=== PATIENT | male | born 2000 | race Caucasian/White ===

== ENCOUNTER 2022-05-08 07:52 | Outpatient (CLI) | payer OTHER, SELFPAY | END 2022-05-08 07:53 | disposition home or self-care (01) | LOC: NFLDREF 07:59 | PROVIDERS: PCP Family Medicine; Visit Provider Family Medicine | DX: Z00.00 Encounter for general adult medical examination without abnormal findings (principal); F32.A Depression, unspecified | CPT/HCPCS: 84443 ==

== ENCOUNTER 2024-01-19 18:41 | Emergency (ER) | payer OTHER, SELFPAY ==
[2024-01-19 19:23] VITALS: BP 112/65; PULSE 85; RESP 14; TEMP 37.2; O2SAT 97; BMI 18.7
--- NOTE | 2024-01-19 19:27 | XR_ITS ---
Patient: JAKE PETTY Facility:?[facility] Patient ID:?[id number] Site Patient ID:?[id number] Site :?2002 Study:?XRay-Extremity Right hand 3v-01/19/2024 7:39:30 PM Ordering Physician:?Peri Arias Final Report: Indication: Crush injury Technique: Three views Comparison: None Findings/Impression: There is an oblique fracture of the distal 5th metacarpal with 1 millimeter of volar displacement of the distal fracture fragment. No intra-articular involvement. Associated mild soft tissue swelling. Dictated by Filemon Perla MD @ 01/19/2024 8:26:43 PM Signed by:?Filemon Perla MD @01/19/2024 8:26:43 PM (Electronic Signature)
--- NOTE | 2024-01-19 21:42 | ED_ITS ---
HPI - Extremity Injury (Upper) General Time Seen by Provider: 21:42 Date Seen: 01/19/24 Chief Complaint: Extremity Pain/Injury, Upper Stated Complaint: R hand injury Time Seen by Provider: 01/19/24 21:40 Source: patient Mode of arrival: ambulatory Limitations: no limitations Related Data Home Medications Medication Instructions Recorded Confirmed cetirizine 10 mg capsule (Zyrtec) 10 mg PO QDAY PRN 12/17/22 01/19/24 Previous Rx's Medication Instructions Recorded dextroamphetamine-amphetamine 10 10 mg PO BID PRN concentration #60 05/18/23 mg tablet tabs Allergies Allergy/AdvReac Type Severity Reaction Status Date / Time tide detergent Allergy Mild Rash Uncoded 07/15/23 09:55 PFSH PFS Medical History Seasonal allergies ?J30.2 - Other seasonal allergic rhinitis (ICD-10) Surgical History History of tympanostomy ?Z98.890 - Other specified postprocedural states (ICD-10) H/O myringotomy ?Z98.890 - Other specified postprocedural states (ICD-10) Family History Father Asthma Social History (Updated 04/01/23 @ 14:25 by Radha Garcia ~ [facility], [facility]) Narrative: Medical Problems: ADHD Acne Concussion Surgical Problems: Hx of tympanostomy tubes Family History Problems: Family history of asthma in father Smoking Status: Never smoker Do you use any of these nicotine containing products: E-Cigarettes Second hand tobacco smoke exposure: No Little interest or pleasure in doing things: not at all Feeling down, depressed, or hopeless: not at all Exam Const: Vital Signs, click to edit/add: Vital Signs - 24 hr 01/19/24 19:23 Temperature 99 F Pulse Rate [Pulse Oximeter] 85 Respiratory Rate 14 Blood Pressure [Ri ght Upper Arm] 112/65 Pulse Oximetry 97 Oxygen Delivery Me thod Room Air Course Vital Signs Vital signs: Initial Vital Signs Temperature 99 F 01/19/24 19:23 Temperature Source Oral 01/19/24 19:23 Pulse Rate 85 01/19/24 19:23 Pulse Rhythm Regular 01/19/24 19:23 Pulse Strength 3+ Normal 01/19/24 19:23 Respiratory Rate 14 01/19/24 19:23 Blood Pressure 112/65 01/19/24 19:23 Blood Pressure Mean 80 01/19/24 19:23 Blood Pressure Position Sitting 01/19/24 19:23 Pulse Oximetry 97 01/19/24 19:23 Oxygen Delivery Method Room Air 01/19/24 19:23 Vital Signs Temperature 99 F 01/19/24 19:23 Pulse Rate 85 01/19/24 19:23 Respiratory Rate 14 01/19/24 19:23 Blood Pressure 112/65 01/19/24 19:23 Pulse Oximetry 97 01/19/24 19:23 Oxygen Delivery Method Room Air 01/19/24 19:23 Temperature 99 F 01/19/24 19:23 Pulse Rate 85 01/19/24 19:23 Respiratory Rate 14 01/19/24 19:23 Blood Pressure 112/65 01/19/24 19:23 Pulse Oximetry 97 01/19/24 19:23 Oxygen Delivery Method Room Air 01/19/24 19:23 Discharge Plan Discharge Prescriptions: No Action Zyrtec 10 mg capsule 10 mg PO QDAY PRN dextroamphetamine-amphetamine 10 mg tablet 10 mg PO BID PRN (Reason: concentration) Qty: 60 0RF Rx Instructions: administer doses at least 4-6 hours apart Follow Up/Referrals: Manjinder Alexander MD [Primary Care Provider] -
--- NOTE | 2024-01-19 21:44 | ED_ITS ---
HPI - General Adult General Chief complaint: Extremity Pain/Injury, Upper Stated complaint: R hand injury Time Seen by Provider: 01/19/24 21:40 History of Present Illness HPI narrative: This is a 23-year-old man who has a history of tendinitis affecting his right hand (last about 6 months last year), also with a history of ADHD, who presents to the ER today with a work-related injury to his right hand. He was using a [employer] to lift some heavy pallets at work [facility] [employer] this afternoon when he accidentally got his right hand caught between the handle of the [employer] and another forklift. He suffered some abrasions to the dorsum of the 5th metacarpal in and a superficial abrasion in the the webspace between his 4th and 5th digits on his right hand. He has had pain affecting the 5th metacarpal of his right hand. Otherwise no pain in the index, middle finger, ring fingers. Thumb uninjured. Related Data Home Medications Medication Instructions Recorded Confirmed cetirizine 10 mg capsule (Zyrtec) 10 mg PO QDAY PRN 12/17/22 01/19/24 Previous Rx's Medication Instructions Recorded dextroamphetamine-amphetamine 10 10 mg PO BID PRN concentration #60 05/18/23 mg tablet tabs Allergies Allergy/AdvReac Type Severity Reaction Status Date / Time tide detergent Allergy Mild Rash Uncoded 07/15/23 09:55 [facility] Medical History Seasonal allergies ?J30.2 - Other seasonal allergic rhinitis (ICD-10) Surgical History History of tympanostomy ?Z98.890 - Other specified postprocedural states (ICD-10) H/O myringotomy ?Z98.890 - Other specified postprocedural states (ICD-10) Family History Father Asthma Social History (Updated 04/01/23 @ 14:25 by Radha Garcia ~ [facility], [facility]) Narrative: Medical Problems: ADHD Acne Concussion Surgical Problems: Hx of tympanostomy tubes Family History Problems: Family history of asthma in father Smoking Status: Never smoker Do you use any of these nicotine containing products: E-Cigarettes Second hand tobacco smoke exposure: No Non-prescribed substance use: denies use Little interest or pleasure in doing things: not at all Feeling down, depressed, or hopeless: not at all service: No Exam Const: Vital Signs, click to edit/add: Vital Signs - 24 hr 01/19/24 19:23 Temperature 99 F Pulse Rate [Pulse Oximeter] 85 Respiratory Rate 14 Blood Pressure [Ri ght Upper Arm] 112/65 Pulse Oximetry 97 Oxygen Delivery Me thod Room Air Course Course ED Course: Constitutional: Appears well-developed and well-nourished. Polite. Nontoxic. HENT: Head: Atraumatic. No signs of injury. Nose: No nasal discharge. Mouth/Throat: Mucous membranes are moist. Pharynx is normal. Tonsils symmetric. Uvula midline. Airway patent. Eyes: Conjunctivae normal and EOM are normal. Pupils are equal, round, and reactive to light. Right eye exhibits no discharge. Left eye exhibits no discharge. No icterus. Neck: Normal range of motion. Neck supple. No adenopathy. No stridor. Cardiovascular: Normal rate and regular rhythm. No murmur heard. No murmurs, r ubs, or gallops. Brisk capillary refill Pulmonary/Chest: Effort normal. No stridor. No respiratory distress. No wheezes.No rhonchi. No rales. No retractions. Abdominal: Soft. Bowel sounds are normal. No distension. No mass. There is no tenderness. There is no rebound and no guarding. Musculoskeletal: Normal range of motion in his shoulder, elbow, wrist. Inspection of the patient's right hand reveals superficial abrasions on the dorsum of the 5th metacarpal and a superficial linear abrasion in the webspace between the 4th and 5th digit. He is tender with swelling over the 5th metacarpal. No definite deformity. MCP, PIP, middle phalanges, DI P, distal phalanges nontender. Normal flexion extension of the MCP, PIP, DI P joints. Intact ulnar and radial digital nerve sensory function. Neurological: Alert. Normal strength. No cranial nerve deficit or sensory deficit. Coordination normal. GCS eye subscore is 4. GCS verbal subscore is 5. GCS motor subscore is 6. Skin: Skin is warm. No rash noted. Vital Signs Vital signs: Initial Vital Signs Temperature 99 F 01/19/24 19:23 Temperature Source Oral 01/19/24 19:23 Pulse Rate 85 01/19/24 19:23 Pulse Rhythm Regular 01/19/24 19:23 Pulse Strength 3+ Normal 01/19/24 19:23 Respiratory Rate 14 01/19/24 19:23 Blood Pressure 112/65 01/19/24 19:23 Blood Pressure Mean 80 01/19/24 19:23 Blood Pressure Position Sitting 01/19/24 19:23 Pulse Oximetry 97 01/19/24 19:23 Oxygen Delivery Method Room Air 01/19/24 19:23 Vital Signs Temperature 99 F 01/19/24 19:23 Pulse Rate 85 01/19/24 19:23 Respiratory Rate 14 01/19/24 19:23 Blood Pressure 112/65 01/19/24 19:23 Pulse Oximetry 97 01/19/24 19:23 Oxygen Delivery Method Room Air 01/19/24 19:23 Temperature 99 F 01/19/24 19:23 Pulse Rate 85 01/19/24 19:23 Respiratory Rate 14 01/19/24 19:23 Blood Pressure 112/65 01/19/24 19:23 Pulse Oximetry 97 01/19/24 19:23 Oxygen Delivery Method Room Air 01/19/24 19:23 Medical Decision Making MDM Narrative Medical decision making narrative: Very polite 23-year-old gentleman presenting to the ER today with a work related injury where he got his right hand crushed between a [employer] and a forklift. Exam and x-rays confirm a nondisplaced fracture through the 5th metacarpal of the right hand. He is neurovascularly intact. Fortunately this really is a nondisplaced, minimally angulated fracture. Would not benefit from any attempted close reduction here in the ER. His overlying abrasions were cleansed and antibiotic ointment and not hear dressings were placed. He was placed into an ulnar gutter splint with padding between the 4th and 5th digits to prevent maceration. He will need outpatient follow-up with Ortho. Provided with work note and splint precautions. Precautions for return to the ER reviewed. Imaging Data XR hand: Attestation: I have reviewed the pertinent imaging results. Radiologist's impression: Technique: Three views Comparison: None Findings/Impression: There is an oblique fracture of the distal 5th metacarpal with 1 millimeter of volar displacement of the distal fracture fragment. No intra-articular involvement. Associated mild soft tissue swelling. Discharge Plan Discharge Clinical Impression: Fracture of fifth metacarpal bone Patient Disposition: Home, Self-Care Condition: Stable Instructions: Hand Fracture (ED) Additional Instructions: As we discussed, please come back to the ER right away if you have any problems especially worsening pain, numbness or pallor in your hand or fingers, or any other problems. Keep your splint on. Keep it clean and dry. Avoid activities that force you to grab with your right hand or that might injury your broken bone in your right hand. Please follow-up with the orthopedic clinic within 4-5 days. call the [facility] tomorrow morning to arrange an ER follow- up appointment. Call [phone] schedule your ER follow-up appointment If you have any problems, come back to the ER right away. Prescriptions: No Action Zyrtec 10 mg capsule 10 mg PO QDAY PRN dextroamphetamine-amphetamine 10 mg tablet 10 mg PO BID PRN (Reason: concentration) Qty: 60 0RF Rx Instructions: administer doses at least 4-6 hours apart Follow Up/Referrals: Manjinder Alexander MD [Primary Care Provider] - Stand Alone Forms: [employer] Info Instructions
--- OUTSIDE RECORDS SUMMARY | 2024-01-19 22:45 | XMS_ITS | Clinical Summary ---
Author Name Unknown Organization [employer] [facility] Address [place], [place] [address] Care Team Providers Care Diabetic Educator Name Role Phone Pcp, No Primary Care Provider Unavailabl e Allergies No known active allergies Medications No known medications Social History Tobacco Use Types Packs/Day Years Used Date Smoking Tobacco: Never Smokeless Tobacco: Never Alcohol Use Standard Drinks/Week Comments Yes 0 (1 standard drink = 0.6 oz pur e alcohol) 1 or 2 drinks a month Sex and Gender Information Value Date Recorded Sex Assigned at Not on file Gender Identity Not on file Sexual Orientation Not on file Obstetrics History Last Filed Vital Signs Vital Sign Reading Time Taken Comments Blood Pressure 106/58 08/01/2022 1:04 PM [facility] Pulse 77 08/01/2022 1:04 PM [facility] Temperature 37.1 ??C (98.7 ??F) 08/01/2022 1:04 PM CS T Respiratory Rate 19 08/01/2022 1:04 PM [facility] Oxygen Saturation 99% 08/01/2022 1:04 PM [facility] Inhaled Oxygen Concentration - - Weight 67.6 kg (149 lb) 08/01/2022 1:04 PM [facility] Height - - Body Mass Index - - Plan of Treatment Health Maintenance Due Date Last Done Comments Tdap 2013 Depression screening for age 12+ 2014 HIV for age 15-65 2017 HPV series for age 9-26 (1 - Male 3-dose series) 2017 BMI (ht and wt on same day) for age 18+ 02/20/2020 Hepatitis C screening for age 18-79 02/20/2020 Tetanus booster 2022 COVID-19 vaccine series (2022- season) 2023 Influenza for age 9-49 05/02/2024 Meningococcal series for age 11-21 Aged Out No longer eligible based on patient's age to complete this topic Pneumococcal series for age 6-64 Aged Out No longer eligible based on patient's age to complete this topic Care Teams Diabetic Educator Relationship Specialty Start Date End Date Pcp, No . PCP - General 08/01/22
== END 2024-01-19 22:43 | disposition home or self-care (01) ==
LOC: ED 22:44
PROVIDERS: Emergency Provider Emergency Medicine; PCP Family Medicine
DX: S62.306A Unspecified fracture of fifth metacarpal bone, right hand, initial encounter for closed fracture (principal); W23.0XXA Caught, crushed, jammed, or pinched between moving objects, initial encounter; Y99.0 Civilian activity done for income or pay
CPT/HCPCS: 73130; 99282; 99283

== ENCOUNTER 2024-03-09 16:00 | Outpatient (RCR) | payer OTHER, SELFPAY | END 2024-07-07 23:59 | disposition home or self-care (01) | PROVIDERS: PCP Family Medicine; Visit Provider Orthopaedic Surgery Sports Medicine | DX: S62.308A Unspecified fracture of other metacarpal bone, initial encounter for closed fracture (principal); R52 Pain, unspecified; R60.9 Edema, unspecified; R53.1 Weakness; Z74.09 Other reduced mobility; Z51.89 Encounter for other specified aftercare | CPT/HCPCS: 97110; 97165; L3806; X5282 ==